=== PATIENT | female | born 1980 | race Hispanic/Latino ===

== ENCOUNTER 2023-01-28 16:14 | Emergency (ER) | payer OTHER, BC | END 2023-01-28 17:13 | disposition home or self-care (01) | LOC: ERS 16:14 | DX: S16.1XXA Strain of muscle, fascia and tendon at neck level, initial encounter (principal); E03.9 Hypothyroidism, unspecified; V43.52XA Car driver injured in collision with other type car in traffic accident, initial encounter; W22.11XA Striking against or struck by driver side automobile airbag, initial encounter | CPT/HCPCS: 99283 ==